=== PATIENT | female | born 1980 | race Caucasian/White ===

== ENCOUNTER 2018-06-14 07:35 | Emergency (ER) | payer OTHER ==
[~2018-06-14] VITALS: Ht 165.1 cm; Wt 52.6 kg
[2018-06-14 08:03] LABS: MICROSCOPIC NOT IND
[2018-06-14 08:08] LABS: CULTURE INDICATED? NO
--- NOTE | 2018-06-14 08:40 | NUR ---
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
--- NOTE | 2018-06-14 08:45 | NUR ---
First contact with pt. Pt resting on gurney. NADN. Pt connected to NIBP and continous pulse ox. Pt denying pain at this time. Pt states, "On Tuesday this pain started (RLQ). It is a grabbing intermittent pain. When it is grabbing it is a 3 or 4 out of 10. Right now I am not having pain. I have had a little nausea but no vomiting or diarrhea. I thoutht it was ovulation pain at first. I would get the pain right before peeing but it would go away as soon as the stream starts." Pt denies vomiting, diarrhea, cp, sob, blood in urine, blood in stool, increased in frequency, or burning with urination. All safety measures in place. No needs requested at this time. Call light within reach.
[2018-06-14 08:58] LABS: BASOPHILS # (AUTO) 0.01 x10^3/uL (0-0.1); BASOPHILS % (AUTO) 0 % (0-1); EOSINOPHILS # (AUTO) 0.02 x10^3/uL (0-0.4); EOSINOPHILS % (AUTO) 0 % (1-7); LYMPHOCYTES % (AUTO) 19 % (22-44); MD NO; MEAN CORPUSCULAR HEMOGLOBIN 30.5 pg (27.0-34.8); MEAN CORPUSCULAR HGB CONC 33.9 g/dL (32.4-35.8); MEAN PLATELET VOLUME 8.3 fL (7.4-10.4); MONOCYTES # (AUTO) 0.34 x10^3/uL (0.2-0.8); MONOCYTES % (AUTO) 5 % (2-9); NEUTROPHILS # (AUTO) 4.72 x10^3/uL (1.8-6.8); NEUTROPHILS % (AUTO) 75 % (42-75); PLATELET COUNT 229 x10^3/uL (130-400); RED BLOOD COUNT 4.78 x10^6/uL (3.82-5.3); RED CELL DISTRIBUTION WIDTH 13.1 % (9.6-15.2)
[2018-06-14 09:11] LABS: ALBUMIN 4.3 g/dL (3.4-5.0); ANION GAP 7 mmol/L (5-15); CHLORIDE 107 mmol/L (98-107); CREATININE 0.69 mg/dL (0.55-1.02)
--- NOTE | 2018-06-14 09:16 | NUR ---
Pt transported on gurney to imaging.
--- NOTE | 2018-06-14 10:40 | NUR ---
Patient given discharge instructions and they have confirmed that they understand the instructions. Patient ambulatory with steady gait. Pt left with prescriptions, discharge paperwork, and all personal belongings.
[2018-06-14 10:41] VITALS: BP 102/64
== END 2018-06-14 10:50 | disposition home or self-care (01) ==
LOC: ED 09:48
DX: N83.201 Unspecified ovarian cyst, right side (principal)
CPT/HCPCS: 36415; 76830; 80048; 81003; 82040; 84702; 85025; 99284

== ENCOUNTER 2019-07-14 16:43 | Emergency (ER) | payer OTHER ==
[~2019-07-14] VITALS: Ht 165.1 cm; Wt 50.4 kg
[2019-07-14 17:08] VITALS: BP 114/74
--- NOTE | 2019-07-14 17:09 | NUR ---
FIRST CONTACT WITH PT. PT STATES "I WAS AT HOME, HAD SEVERE ABDOMINAL PAIN FROM PERIOD PAIN, MY HANDS GOT TINGLY, I GOT ALL SWEATY, FELT DIZZY LIKE I WAS GOING TO PASS OUT, SO WENT TO URGENT CARE, THEY SAID URINE HAS BLOOD AND KETONES AND TOLD ME TO COME HERE. I HAD DIARRHEA EARLIER TODAY ONCE. I FEEL BETTER NOW, MY HANDS AND DIZZINESS RESOLVED, THEY GAVE ME 4MG ZOFRAN THERE. 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 RESPS EVEN AND UNLABORED. BP/SPO2 MONITORS IN PLACE. CALL LIGHT WITHIN REACH. RAILS UP X 2.
--- NOTE | 2019-07-14 17:29 | NUR ---
pt amb to br and back to room with steady gait. ua sent.
--- NOTE | 2019-07-14 17:36 | NUR ---
Patient given discharge instructions and they have confirmed that they understand the instructions. Patient ambulatory with steady gait.
[2019-07-14 17:41] LABS: MICROSCOPIC INDICATED
[2019-07-14 17:49] LABS: CULTURE INDICATED? YES
== END 2019-07-14 17:37 | disposition home or self-care (01) ==
LOC: ED 17:22
DX: R10.30 Lower abdominal pain, unspecified (principal); R19.7 Diarrhea, unspecified; R20.2 Paresthesia of skin
CPT/HCPCS: 81001; 87086; 99283